=== PATIENT | female | born 1935 | race Caucasian/White ===

== ENCOUNTER 2019-12-02 09:48 | Inpatient (IN) | payer OTHER ==
[~2019-12-02] VITALS: Ht 152.4 cm; Wt 80.1 kg
[2019-12-02 09:53] VITALS: BP 143/75
[2019-12-02 11:13] LABS: ABSOLUTE NEUTROPHILS 7.1 thou/uL (1.4-8.2); BASOPHILS 0.3 % (0.0-2.0); EOSINOPHILS 0.4 % (0.0-3.0); HEMATOCRIT 33.6 % (37.0-47.0); HEMOGLOBIN 11.1 gm/dL (12.0-15.0); LYMPHOCYTES 13.6 % (24.0-44.0); MCH 32.4 pg (26.0-34.0); MCHC 33.2 g/dL (28.0-37.0); MCV 97.7 fL (80.0-100.0); MONOCYTES 7.6 % (1.0-8.0); PLATELET COUNT 348 thou/uL (150-400); POLYS 78.1 % (36.0-66.0); RBC 3.43 mil/uL (4.20-5.00); RDW 15.3 % (10.5-14.5); WBC 9.1 thou/uL (4.0-11.0)
[2019-12-02 11:23] LABS: ANION GAP 13 mmol/L (7-16); BUN 25 mg/dL (7-18); CALCIUM 8.8 mg/dL (8.5-10.1); CHLORIDE 105 mmol/L (98-107); CO2 22 mmol/L (21-32); CREATININE 0.7 mg/dL (0.6-1.0); GLUCOSE 64 mg/dL (74-106); POTASSIUM 4.1 mmol/L (3.5-5.1); SODIUM 140 mmol/L (136-145)
[2019-12-02 11:42] LABS: ALBUMIN 2.6 g/dL (3.4-5.0); MAGNESIUM 1.8 mg/dL (1.8-2.4); SGOT 42 U/L (15-37); SGPT 49 U/L (30-65); TOTAL BILIRUBIN 0.3 mg/dL (0.2-1.0); TOTAL PROTEIN 6.6 g/dL (6.4-8.2); TROPONIN-I <0.06 ng/mL (<0.06)
[2019-12-02 11:56] LABS: URINE BILIRUBIN NEGATIVE (Negative); URINE BLOOD NEGATIVE (Negative); URINE CLARITY CLEAR; URINE COLOR YELLOW; URINE GLUCOSE-RANDOM* NEGATIVE (Negative); URINE KETONES 1+ (Negative); URINE NITRITE-REFLEX NEGATIVE (Negative); URINE PROTEIN (DIPSTICK) NEGATIVE (Negative); URINE SPECIFIC GRAVITY 1.015 (1.005-1.035); URINE UROBILINOGEN 0.2 E.U./dl (0.2-1.0)
[2019-12-02 11:57] LABS: URINE LEUKOCYTES-REFLEX 1+ (Negative)
[2019-12-02 12:00] LABS: BACTERIA-REFLEX 1-9 Few /HPF (None Seen); CASTS None Seen /LPF (None Seen); CRYSTALS None Seen /LPF (None Seen); SQUAMOUS 0-3 Few /LPF (0-3); URINE RBC None Seen /HPF (0-2); URINE WBC-REFLEX 6-15 Few /HPF (0-5)
[2019-12-02 14:57] VITALS: BP 117/53
[2019-12-02 15:05] VITALS: BP 133/58
--- NOTE | 2019-12-02 15:36 | EKG ---
[facility] [place] [address] ELECTROCARDIOGRAM REPORT Name: LETHA CRUZ Room #: 434-P ADM IN M.R.#: [id number] Admission: 12/02/19 Attend Phys: Dorian Humphreys MD Discharge: Date of : 31 Report #: [id number] THIS REPORT FOR: cc: Paulie Milton MD, Thomas P. MD Santiago, Patrick MD [facility] ~ THIS REPORT FOR: //name// [facility] ED Test Date: 2019-12-02 Test Time: 11:11:34 Pat Name: LETHA CRUZ Department: Room: 434 Gender: F Top Screw: ANISHA : 1935 Requested By: Claude Rowland Order Number: [id number] MD: Teo Root Measurements Intervals [place] Rate: 67 P: 26 SC: 183 QRS: -1 QRSD: 101 T: 25 QT: 441 QTc: 466 Interpretive Statements Sinus rhythm Inferior infarct, old No previous ECG available for comparison Electronically Signed On 12-02-2019 15:36:22 CDT by Teo Root [email or web address] <ELECTRONICALLY SIGNED> By: Teo Root MD, FACC 12/02/19 1536 1111 1111 Teo Root MD, [facility] /EPI
[2019-12-02] MEDS ORDERED: OMEPRAZOLE40 MG PO (15:39)
[2019-12-02] MEDS ORDERED: LOSARTAN-HCTZ1 EAC3 PO (15:39)
[2019-12-02] MEDS ORDERED: K-DUR 20 MEQ T20 MEQ PO (15:40)
[2019-12-02] MEDS ORDERED: LIPITOR 40 MG T40 M1 PO (15:40)
[2019-12-02] MEDS ORDERED: MIRTAZAPINE15 M2 PO (15:40)
[2019-12-02] MEDS ORDERED: AMLODIPINE BESY10 MG PO (15:41)
[2019-12-02] MEDS ORDERED: HYDRALAZINE 5050 MG PO (15:41)
[2019-12-02] MEDS ORDERED: DULOXETINE HCL30 MG PO (15:42)
--- NOTE | 2019-12-02 16:53 | NUR ---
PT CARE ASSUMED FROM ER AT 1515. A&Ox4. FORGETFUL. ADMISSION COMPLEETED. PT HAD A BS OF 55 WHEN ADMITTED IN ER. D10 WAS GIVEN RECHECKED AND NOW 103. PT CAN STANDUP AND PIVOT AT HOME BUT IS CURRENTLY TOO WEAK AND ON BEDREST/ CONTINENT WITH URINARY INCONTINENT EPISODES. O2 1L FOR COMFORT. MED REC COMPLEETE. PT RESTING COMFORTABLY IN BED. IV PATENT WITH NO REDNESS OR EDEMA, SALINE LOCKED. FALL PROTOCOL IN PLACE. CALL LIGHT IN REACH. WILL CONTINUE TO MONITOR.
[2019-12-02 18:17] VITALS: BP 150/79
--- NOTE | 2019-12-03 02:11 | NUR ---
pt care assumed with pt in bed sleeping.pt is alert and orient x4.pt used bedpan and also incontinent to bladder.pt meals is set up and assist.pt appear to ne in no acute distress or pain.will continue to monitor
[2019-12-03 03:28] VITALS: BP 137/59
[2019-12-03 06:30] LABS: ABSOLUTE NEUTROPHILS 4.3 thou/uL (1.4-8.2); BASOPHILS 0.6 % (0.0-2.0); EOSINOPHILS 0.9 % (0.0-3.0); HEMATOCRIT 33.6 % (37.0-47.0); LYMPHOCYTES 22.6 % (24.0-44.0); MCH 32.5 pg (26.0-34.0); MCHC 32.8 g/dL (28.0-37.0); MCV 99.1 fL (80.0-100.0); MONOCYTES 8.8 % (1.0-8.0); PLATELET COUNT 346 thou/uL (150-400); POLYS 67.1 % (36.0-66.0); RBC 3.39 mil/uL (4.20-5.00); RDW 15.5 % (10.5-14.5); WBC 6.4 thou/uL (4.0-11.0)
[2019-12-03 06:45] LABS: ANION GAP 11 mmol/L (7-16); BUN 23 mg/dL (7-18); CHLORIDE 103 mmol/L (98-107); CO2 24 mmol/L (21-32); CREATININE 1.2 mg/dL (0.6-1.0); GLUCOSE 54 mg/dL (74-106); MAGNESIUM 1.7 mg/dL (1.8-2.4); SODIUM 138 mmol/L (136-145)
[2019-12-03 08:00] VITALS: BP 105/48; BP 142/67
--- NOTE | 2019-12-03 09:29 | NUR ---
ASSESSMENT: CM REVIEWED CHART AND MET WITH PATIENT AT THE BEDSIDE. PT IS ADMITTED FROM HOME DUE TO UTI/DEHYDRATION. PT REPORTS LIVING IN A HOUSE WITH HER . PT REPORTS SHE HAS A CAREGIVER THAT HELPS ASSIST HER ON /// FOR 5 HOURS PER DAY. SHE REPORTS THAT SHE IS PRIVATELY PAID. PT STATES THAT SHE USES A WALKER FOR AMBULATION. PT STATES THE CAREGIVER ASSIST WITH ADLS AND SHE HAS A SHOWER CHAIR. PT DENIES HAVING OXYGEN AT HOME. PT REPORTS THAT SHE HAS BEEN TO A REHAB IN THE PAST BUT UNSURE WHERE. PT DOES NOT FEEL SHE HAS HAD HH IN THE PAST. PT/OT IS ORDERED TO SEE PATIENT. CM WILL CONTINUE TO FOLLOW TO ASSIST NEEDED.
--- NOTE | 2019-12-03 09:42 | NUR ---
ASSESSMENT: CM REVIEWED CHART AND MET WITH PATIENT AT THE BEDSIDE. PT IS ADMITTED FROM HOME DUE TO UTI/DEHYDRATION. PT REPORTS LIVING IN A HOUSE WITH HER . PT REPORTS SHE HAS A CAREGIVER THAT HELPS ASSIST HER ON /// FOR 5 HOURS PER DAY. SHE REPORTS THAT SHE IS PRIVATELY PAID. PT STATES THAT SHE USES A WALKER FOR AMBULATION. PT STATES THE CAREGIVER ASSIST WITH ADLS AND SHE HAS A SHOWER CHAIR. CM RECEIVED A CALL FROM [employer] WHO REPORTS THAT PATIENT IS CURRENTLY IN SERVICES WITH THEM. CM FAXED INITIAL CLINICAL TO [facility] AND THEY WILL FOLLOW. PT REPORTS SHE HAS BEEN TO A SNF BEFORE SHE THINKS BUT IS UNSURE WHERE. PT/OT IS TO SEE PATIENT. CM WILL CONTINUE TO FOLLOW TO ASSIST NEEDED.
[2019-12-03 13:44] LABS: ALBUMIN 2.6 g/dL (3.4-5.0); DIRECT BILIRUBIN < 0.1 mg/dL (<0.1-0.2); SGOT 49 U/L (15-37); SGPT 39 U/L (30-65); TOTAL BILIRUBIN 0.2 mg/dL (0.2-1.0)
--- NOTE | 2019-12-03 17:17 | NUR ---
PT ASSESSED AT START OF SHIFT. PT ALERT BUT FORGETFUL. PT'S ICT SECURITY SPECIALIST RELATED PT LOOKS MUCH BETTER TODAY. UP TO THE CHAIR W/ THERAPY STILL VERY WEAK. NO BM. EATING OK.
[2019-12-03 20:00] VITALS: BP 119/45
--- NOTE | 2019-12-04 00:06 | NUR ---
PT ALERT AND ORIENTED X 1. INCONT OF URINE AND USES BEDPAN WELL. LAC SL INTACT. PT C/O PAIN IN RIGHT FOOT. TYLENOL GIVEN ORDERED. PT NPO AFTER MIDNIGHT FOR ULTRASOUND OF ABDOMEN IN AM. BED ALARM ON FOR SAFETY. PT APPEARS TO BE SLEEPING ON HOURLY ROUNDS.
[2019-12-04 05:58] LABS: HEMOGLOBIN 9.9 gm/dL (12.0-15.0); MCH 32.5 pg (26.0-34.0); MCV 98.6 fL (80.0-100.0); RBC 3.04 mil/uL (4.20-5.00); RDW 15.4 % (10.5-14.5); WBC 5.2 thou/uL (4.0-11.0)
[2019-12-04 06:16] LABS: ALBUMIN 2.3 g/dL (3.4-5.0); CALCIUM 8.8 mg/dL (8.5-10.1); POTASSIUM 3.7 mmol/L (3.5-5.1); TOTAL BILIRUBIN 0.2 mg/dL (0.2-1.0); TOTAL PROTEIN 6.2 g/dL (6.4-8.2)
--- NOTE | 2019-12-04 09:12 | NUR ---
PATIENT BLOOD GLUCOSE AT 55 THIS AM; PAGED DR; CHIEF MEDICAL DIRECTOR IN ROOM. PUSHED D50 IV AT 0910.
[2019-12-04 11:13] VITALS: BP 101/44
--- NOTE | 2019-12-04 11:45 | NUR ---
RD consult received. Pt admitted with weakness, dehyration, UTI. Visit this am, pt answering some questions but appears fatigued. Caregiver, Shereen in room. States pt normally eats well, can feed herself, "peel an orange on her own". Weakened from UTI infection. Had low bg level of 56 this am, did not eat any breakfast. Caregiver plans to be here for majority of meals, but has requested pt to receive feed assist until gets stronger again. Pt gave food preferences for her lunch meal. Started on some D5 .45NS fluids. No significant wt changes. Physician has indicated protein calorie malnutrition: will defer as suspect decreased intake is temporary from UTI. Pt also wants to try Ensure. Low nutrition risk
--- NOTE | 2019-12-04 13:56 | NUR ---
CM FOLLOWED UP WITH LIAISON AT [facility] THIS DAY AND SHE INDICATED THAT THEY DON'T ANTICIPATED HAVING ANY BEDS UNITL SUNDAY. CM MET WITH PT AND HER CAREGIVER AT BEDSIDE AND INDICATED THAT. CM INDICATED THAT CM HAD ATTEMPTED PC TO PT'S SPOUSE AND GOT THE HOME VOICEMAIL. CAREGIVER PROVIDED DTR DELIA'S PHONE NUMBER . CM CALLED AND DTR WAS WITH PT'S SPOUSE. CM INDICATED THE ABOVE. HE INDICATED THAT REFERR[place] COU[place] BE SENT [place] [facility] [place]. CG MILA INDICATED THAT PT IS MORE SLEEPY THEN SHE HAS BEEN AND THAT SHE NEEDS ASSIST/ENCOURAGEMENT TO EAT. CM FOLLOWING FOR DC PLANNING.
[2019-12-04 15:29] VITALS: BP 128/57
--- NOTE | 2019-12-04 15:57 | NUR ---
ASSUMED PATEINT CARE AT SHIFT CHANGE. ASSESSMENT CHARTED. MEDICATIONS GIVEN PER APR; HELD HYDRALAZINE D/T LOW BP. ONSET OF ALTERED MENTAL STATUS OCCURED AROUND 12PM AND PROGRESSED. BLADDER WAS SCANNED AND FOUND TO CONTAIN 517CC'S OF URINE. CLEARY WAS INSERTED; UPON BLADDER RESCAN THERE WERE 98CC'S AND DRAINING INTO INDWELLING CLEARY BAG. FLUIDS INFUSING AT 100MLS/HR D/T LOW BLOOD GLUCOSE EARLIER TODAY;
--- NOTE | 2019-12-04 17:04 | NUR ---
FAXED REFERRAL TO [facility] RECEIVED CONFIRMATION AND SPOKE WITH KAILYN IN ADM SHE WILL REVIEW. DP T0 FOLLOW.
--- NOTE | 2019-12-04 19:55 | NUR ---
PATIENT WENT DOWN TO CT TODAY; RESULTS ARE NEGATIVE. PATIENT BECAME ALERT BUT STILL CONFUSED AFTER BLADDER WAS DRAINED. AT END OF SHIFT CLEARY BAG WAS FOUND EMPTY; BLADDER WAS RESCANNED AND SHOWED 112CC'S OF URINE. PENDING LAB AND DIAGNOSTIC RESULTS. MONITORING FOR FURTHER CHANGE OR DECLINE IN STATUS. FSBS HAVE BEEN STABLE AFTER GLUCOSE PUSH IV BY CLINICAL INSTRUCTOR AND FUTHER INTERVENTION BY THIS NURSE PER DOCTORS ORDERS.
--- NOTE | 2019-12-04 20:15 | NUR ---
I AGREE WITH NURSING ASSESSMENT AND NURSING NOTE DONE BY MORAIMA/SPICE MILLER.
[2019-12-04 20:27] VITALS: BP 151/80
[2019-12-05 04:36] VITALS: BP 143/72
[2019-12-05 06:24] LABS: ABSOLUTE NEUTROPHILS 3.7 thou/uL (1.4-8.2); BASOPHILS 0.5 % (0.0-2.0); HEMATOCRIT 31.4 % (37.0-47.0); HEMOGLOBIN 10.3 gm/dL (12.0-15.0); LYMPHOCYTES 28.5 % (24.0-44.0); MCH 32.5 pg (26.0-34.0); MCHC 32.8 g/dL (28.0-37.0); MCV 99.1 fL (80.0-100.0); MONOCYTES 10.1 % (1.0-8.0); PLATELET COUNT 339 thou/uL (150-400); POLYS 59.9 % (36.0-66.0); RBC 3.17 mil/uL (4.20-5.00); RDW 15.6 % (10.5-14.5); WBC 6.2 thou/uL (4.0-11.0)
[2019-12-05 06:40] LABS: ALBUMIN 2.3 g/dL (3.4-5.0); CALCIUM 8.6 mg/dL (8.5-10.1); CREATININE 0.7 mg/dL (0.6-1.0); MAGNESIUM 1.7 mg/dL (1.8-2.4); PHOSPHORUS 2.6 mg/dL (2.5-4.9); POTASSIUM 3.2 mmol/L (3.5-5.1); TOTAL BILIRUBIN 0.2 mg/dL (0.2-1.0); TOTAL PROTEIN 6.2 g/dL (6.4-8.2)
[2019-12-05 08:00] VITALS: BP 137/69
--- NOTE | 2019-12-05 08:16 | NUR ---
progress pt alert upset thinking her spouse assurred her he was fine and pt back to sleep urinary catheter replaced as the other one was leaking good output noted. continue poc.
[2019-12-05 11:36] VITALS: BP 125/57
[2019-12-05 15:40] VITALS: BP 108/49
--- NOTE | 2019-12-05 16:33 | NUR ---
Assumed pt care at 7am.Assessment completed.vss.Pt wanted something to eat and drink today.Dr Elam notified ,order noted.Pt tolerated med and diet.Portable eeg done later this shift.Pt o2 on at 2lnc.Repositioned pt in bed for comfort. Fall bundle in place.No verbal c/o.Will continue to monitor.
[2019-12-05 19:33] VITALS: BP 120/60
[2019-12-06 03:35] VITALS: BP 129/57
[2019-12-06 06:20] LABS: ANION GAP 9 mmol/L (7-16); BUN 16 mg/dL (7-18); CHLORIDE 103 mmol/L (98-107); CHOLESTEROL 166 mg/dL (<200); CO2 26 mmol/L (21-32); CREATININE 0.8 mg/dL (0.6-1.0); GLUCOSE 95 mg/dL (74-106); HDL CHOLESTEROL 51 mg/dL (>40); LDL CHOLESTEROL 99 mg/dL (<100); MAGNESIUM 1.7 mg/dL (1.8-2.4); PHOSPHORUS 3.2 mg/dL (2.5-4.9); POTASSIUM 3.8 mmol/L (3.5-5.1); SODIUM 138 mmol/L (136-145); TC:HDL 3.3 Ratio (Not establshd); TRIGLYCERIDE 80 mg/dL (<150); VLDL 16 mg/dL (<40)
[2019-12-06 06:31] LABS: SERUM ASSESSMENT Clear
[2019-12-06 08:14] VITALS: BP 125/51
[2019-12-06 09:07] LABS: BASOPHILS 0.3 % (0.0-2.0); EOSINOPHILS 1.6 % (0.0-3.0); HEMATOCRIT 29.1 % (37.0-47.0); HEMOGLOBIN 9.4 gm/dL (12.0-15.0); LYMPHOCYTES 26.3 % (24.0-44.0); MCHC 32.3 g/dL (28.0-37.0); PLATELET COUNT 307 thou/uL (150-400); POLYS 60.8 % (36.0-66.0); RBC 2.94 mil/uL (4.20-5.00); RDW 15.2 % (10.5-14.5); WBC 6.7 thou/uL (4.0-11.0)
[2019-12-06 14:00] VITALS: BP 146/72
[2019-12-06 16:17] VITALS: BP 127/54
[2019-12-06 19:14] VITALS: BP 126/57
--- NOTE | 2019-12-06 19:40 | NUR ---
Assumed pt care this am, Pt is alert x 2, very confused insisting she knows her daughter is down stairs and she will go home with her. Refused most of her meals, but had he supplement in the am, would drink fluids. FC in place drainnig light yellow urine. POC followed with no signs or verbalizations of distresss noted. Endorsed tot night nurse.
--- NOTE | 2019-12-07 05:54 | NUR ---
VSS-AFEBRILE. ALERT AND ORIENTED X 2-3. PERIODS OF CONFUSION. PLEASANT AND COOPERATIVE. NO C/O PAIN. TURNED AND OFFERED ORAL HYDRATION EVERY TWO HOURS FOR COMFORT. FALL PRECAUTIONS IN PLACE.
[2019-12-07 07:49] VITALS: BP 130/65
--- NOTE | 2019-12-07 15:24 | NUR ---
Assumed pt care at 7am.Assessment completed.vss.Pt transferd to chair with max assist for breakfast.Meds given as ordered with breakfast.Pt drank 100% ensure but 25% of breakfast.Dr Elam and Vega here,order noted.Piv went bad and replaced by iv team.Pt c/o neck pain.Heating pad will be applied when received from cs later today.Pt refused lunch,stated that she's too full. Chair alarm in use for safety.Will continue to monitor.
[2019-12-07 16:00] VITALS: BP 117/43
[2019-12-07 21:01] VITALS: BP 141/68
[2019-12-08 08:05] VITALS: BP 140/54
[2019-12-08 08:17] VITALS: BP 140/54
--- NOTE | 2019-12-08 08:18 | NUR ---
progress pt alert to self answers questions when spoken to not all answers are correct, pt slept most of shift ivf's infusing as ordered iv to lf without redness swelling or drainage. taking sips of water when offered attempted to have a bm but had a scant amount of bloddy vaginal drainage cleansed and none further noted.
[2019-12-08 11:51] LABS: HEMATOCRIT 26.4 % (37.0-47.0); HEMOGLOBIN 8.7 gm/dL (12.0-15.0); MCH 32.3 pg (26.0-34.0); MCHC 32.9 g/dL (28.0-37.0); MCV 98.3 fL (80.0-100.0); PLATELET COUNT 301 thou/uL (150-400); RBC 2.68 mil/uL (4.20-5.00); RDW 14.9 % (10.5-14.5); WBC 7.6 thou/uL (4.0-11.0)
[2019-12-08 12:15] LABS: ALBUMIN 1.8 g/dL (3.4-5.0); CALCIUM 8.4 mg/dL (8.5-10.1); CREATININE 0.6 mg/dL (0.6-1.0); TOTAL BILIRUBIN 0.2 mg/dL (0.2-1.0); TOTAL PROTEIN 5.8 g/dL (6.4-8.2)
[2019-12-08 12:59] LABS: ABSOLUTE NEUTROPHILS 5.7 thou/uL (1.4-8.2); PLATELET ESTIMATE NORMAL
--- NOTE | 2019-12-08 16:20 | NUR ---
CM FAXED CLINICAL UPDATED TO NAS AT [facility] INDICATING POSSIBLE DC IN 24-48 HRS. PT'S COVID IS PENDING. CM TO FOLLOW INDICATED WITH DC PLANNING.
--- NOTE | 2019-12-08 18:16 | NUR ---
ASSUMED CARE OF PATIENT THIS AM. ASSESSMENT CHARTED. MEDS GIVEN PER MAR. VSS; PATIENT IS VERY DROWSY TODAY. PATIENT DOES ANSWER TO QUESTIONS HOWEVER. PATIENT HAS VERY POOR APPETITE. CAREGIVER AT BEDSIDE ENCOURAGED HER TO EAT AND SHE ATE 20% OF HER MEALS. PATIENT CONTINUES TO BE REPOSITIONED EVERY 2 HRS BUT REFUSES AT TIMES. X-RAY OF CSPINE THIS AM, AWAITING RESULTS. CLEARY INTACT W YELLOW URINE. PATIENT DENIES ANY OTHER NEEDS AT THIS TIME. WILL CONTINUE TO MONITOR
--- NOTE | 2019-12-08 18:22 | NUR ---
I AGREE WITH NURSING ASSESSMENT AND NURSING NOTE DONE BY MORAIMA/FIELD TECHNICIAN.
[2019-12-08 19:50] VITALS: BP 140/72
--- NOTE | 2019-12-09 07:59 | NUR ---
Assumed pt care at 1900. Pt A/O to person,place and situation on assessment. VSS. Took HS meds w/o any problems,BS was 76 and pt declined taking a snack but consumed 240cc applejuice. Covid test done w/o any problems. Yeboah patent to DD with yellow urine. Pt repositioned as allows,c/o neck pain w/movement. Fall precautions in place. IVF infusing via LFA w/o problems.
[2019-12-09 08:44] VITALS: BP 110/57
[2019-12-09 14:00] VITALS: BP 125/60
--- NOTE | 2019-12-09 14:00 | NUR ---
[facility] CAN ACCEPT PT FOR ADMISSION TOMORROW SATURDAY 12/09 IF MEDICALLY STABLE. CM TO FOLLOW INDICATED WITH DC PLANNING.
--- NOTE | 2019-12-09 20:12 | NUR ---
Assumed pt care this am, care give at the bedside, pt is more alert today. Pt is a feeder, small frequent feedings done through out the day. Bed bath and complete bed change done. FC in place draining light yellow urine. POC followed, neck pain is due to being on one side, pt repositioned. POC followed michelle no signs or verbalizations of distress noted, Endorsed to the night nurse, pt would refuse q2 turns at times.
[2019-12-09 20:21] VITALS: BP 133/59
[2019-12-10 07:29] VITALS: BP 154/83
[2019-12-10 14:45] VITALS: BP 108/63
--- NOTE | 2019-12-10 15:17 | NUR ---
EDILMA SPOKE WITH [facility] AT [facility] THIS AM AND FAXED UPDATED CLINICAL FOR THEM TO SUBMIT FOR AUTH. KAREEM INDICATED THAT THEY AREN'T TAKING NEW ADMITS TODAY. HOSPITALIST INDICATED THAT SHE ANTICPATED DC TOMORROW SHE WOULD LIKE FOR PT TO INCREASE PO INTAKE A BIT MORE. HOPE FOR PT TO DC TOMORROW TO [facility].
--- NOTE | 2019-12-10 19:50 | NUR ---
PT A&OX2-3, VSS, DENIES PAIN. PAIN HAS CLEARY INTACT. NEW IV PLACED LEFT FOREARM. PATIENT UP TO RECLINER AND WORKED WITH PT. PT IS EATING 50% OF MEALS. DOCTOR HAS PATIENT ON CALORIE COUNT. PATIENT IS BEING SEEN BY RESPIRATORY AND BEING ASSISTED WITH INCENTIVE SPIROMETER. PATIENT REPOSITIONED. NO SIGNS OF DISTRESS. WILL CONTINUE TO MONITOR.
[2019-12-11 05:20] VITALS: BP 138/60
[2019-12-11 07:14] VITALS: BP 130/43
--- NOTE | 2019-12-11 10:06 | NUR ---
CARE TEAM INDICATED THAT PT IS MORE CONFUSED TODAY AND HER PO INTAKE IS NOT WHERE SHE WOULD LIKE IT. NEURO TO BE ASKED TO SEE AGAIN FOR POSSIBLE REPEAT MRI AND REPEAT LABS ORDERED. CM NOTIFIED [facility]. CM TO FOLLOW INDICATED WITH DC PLANNING.
[2019-12-11 10:22] LABS: HEMATOCRIT 29.4 % (37.0-47.0); HEMOGLOBIN 9.6 gm/dL (12.0-15.0); MCH 32.2 pg (26.0-34.0); MCHC 32.6 g/dL (28.0-37.0); MCV 98.9 fL (80.0-100.0); RBC 2.98 mil/uL (4.20-5.00)
[2019-12-11 10:30] LABS: CALCIUM 8.7 mg/dL (8.5-10.1); CREATININE 0.6 mg/dL (0.6-1.0); POTASSIUM 3.8 mmol/L (3.5-5.1)
--- NOTE | 2019-12-11 11:24 | NUR ---
Pt eating very little but will drink Ensure supplements. Met 35% oneil and 64% protein needs for day 1 calorie count. Note trial of puree diet due to pts weakness. Plan: 1.continue calorie count 2.will increase ensure enlive to all meals 3.recommend ST to assess safety of swallow 4.recommend start on vitamin D due to deficiency noted
[2019-12-11 15:55] VITALS: BP 126/63
--- NOTE | 2019-12-11 20:16 | NUR ---
Assumed pt care this am, appetite is poor and mentioned she does not want too eat coz its too hard and it takes too much time. international relations professor at the bed side. Bed bath given,FC in place drainnig yellow urine.Q2 turn refused but would allow on occasion. MRI done, pain is managed with repositioning. POC followed, endorsed to the night nurse.
[2019-12-12 07:51] VITALS: BP 107/53
--- NOTE | 2019-12-12 10:48 | NUR ---
Dr Shipman gave verbal order to start PPN. Recommend discontinue maintenance fluids and start clinimix at 100ml/hr. Order needs to be placed in computer please. Pt also needs vitamin D replacement.
[2019-12-12 14:02] VITALS: BP 143/64
--- NOTE | 2019-12-12 15:35 | NUR ---
CARE TEAM INDICATED PT WILL LIKELY NOT BE MEDICALLY STABLE TO DISCHARGE OVER THE WEEKEND. PT WAS JUST STARTED ON PPN. CM CHECKED WITH [facility] AND THEY DON'T DO PPN THERE. THEIR AUTH IS ONLY GOOD UNTIL TOMORROW. ANTICIPATE [facility]EFULL DISCAHRGE THE BEGINING OF NEXT WEEK. CM TO FOLLOW INDICATED WITH DC PLANNING.
[2019-12-12 16:13] LABS: ALBUMIN 1.8 g/dL (3.4-5.0); CALCIUM 8.1 mg/dL (8.5-10.1); CREATININE 0.6 mg/dL (0.6-1.0); PHOSPHORUS 3.7 mg/dL (2.5-4.9); POTASSIUM 4.7 mmol/L (3.5-5.1); TOTAL BILIRUBIN 0.1 mg/dL (0.2-1.0); TOTAL PROTEIN 4.9 g/dL (6.4-8.2)
--- NOTE | 2019-12-12 19:57 | NUR ---
Assumed pt care this am, appretite is very poor not wanting to eat. Medication given with pudding. Pt is very angry and resistant to POC. Both arms are +3 edema on both arms, informed MD. Venous doppler ordered not significant findings. IV team restarted IV on the left AC, PPN started. POC followed, endorsed darline night nurse. Small frequent feedings and hdyrations tried through out the shift. Q2 turns refused and pt verbalizae dshe did not want to be touched and to be left alone.
[2019-12-13 05:36] VITALS: BP 168/81
[2019-12-13 06:17] LABS: ALBUMIN 1.8 g/dL (3.4-5.0); CALCIUM 9.1 mg/dL (8.5-10.1); CREATININE 0.6 mg/dL (0.6-1.0); MAGNESIUM 2.3 mg/dL (1.8-2.4); PHOSPHORUS 4.1 mg/dL (2.5-4.9); POTASSIUM 4.3 mmol/L (3.5-5.1); TOTAL BILIRUBIN 0.2 mg/dL (0.2-1.0); TOTAL PROTEIN 6.2 g/dL (6.4-8.2)
[2019-12-13 07:52] VITALS: BP 143/56
--- NOTE | 2019-12-13 12:34 | NUR ---
PT CARE ASSUMED AT 0700. A&Ox4, FORGETFUL. PT HAS GENERALIZED EDEMA+3. SKIN IS FLAKY ON THE ENTIRE BODY. PT VERY SLEPPY TODAY. ON RA. R. AC PATENT WITH NO REDNESS OR EDEMA ONLY FOR TPN INFUSION. L.HAND INFILTRATED AND REMOVED. PT HAS DROP FOOT L FOOT. WHEN UP TO THE CHAIR PT IS A 2 MAX ASSIST WITH STAND AND PIVOT. HOLD HYDRALIZINE IF SYSTOLIC BELOW 130. PT WILL WEAR 2L FOR COMFORT PER PT REQUEST. FALL PROTOCOL IN PLACE. CALL LIGHTI N REACH. BM TODAY. PT IS A FEEDER AND TOTAL CARE.
[2019-12-13 14:49] VITALS: BP 145/55
[2019-12-14 05:37] LABS: HEMATOCRIT 24.6 % (37.0-47.0); HEMOGLOBIN 8.2 gm/dL (12.0-15.0); MCH 32.8 pg (26.0-34.0); MCHC 33.2 g/dL (28.0-37.0); MCV 98.6 fL (80.0-100.0); PLATELET COUNT 523 thou/uL (150-400); RDW 14.6 % (10.5-14.5); WBC 8.3 thou/uL (4.0-11.0)
[2019-12-14 06:00] LABS: ALBUMIN 1.7 g/dL (3.4-5.0); DIRECT BILIRUBIN < 0.1 mg/dL (<0.1-0.2); SGOT 21 U/L (15-37); SGPT 25 U/L (30-65); TOTAL BILIRUBIN 0.2 mg/dL (0.2-1.0); TOTAL PROTEIN 4.6 g/dL (6.4-8.2)
[2019-12-14 06:05] LABS: CALCIUM 8.5 mg/dL (8.5-10.1); CREATININE 0.7 mg/dL (0.6-1.0); MAGNESIUM 2.2 mg/dL (1.8-2.4); PHOSPHORUS 4.3 mg/dL (2.5-4.9); POTASSIUM 4.7 mmol/L (3.5-5.1)
[2019-12-14 06:41] LABS: ABSOLUTE NEUTROPHILS 4.9 thou/uL (1.4-8.2); PLATELET ESTIMATE NORMAL
--- NOTE | 2019-12-14 07:47 | NUR ---
PROGRESS PT A/O X4 UP WITH MAX ASSIST , BED BATH GIVEN AND SKIN MOISTURIZED TAKING PAIN MEDICATION SPARINGLY IV ANTIBIOTICS AND PPN CONTINUE PT ON PUREED DIET NEEDS ASSISTANCE WITH MEAL SET UP AND ENCOURAGEMENT TO EAT MORE. CLEARY INTACT DRAINING LARGE AMOUNT OF CLEAR YELLOW URINE. REPOSITIONED Q2 HOURS GENERALIZED EDMA NOTED BUT HAS GONE DOWN SLIGHTLY SINCE PREVIOUS SHIFT SKIN IS NOT SHINY AND TIGHT TODAY. CONTINUE POC.
[2019-12-14 07:59] VITALS: BP 127/58
--- NOTE | 2019-12-14 13:43 | NUR ---
Assumed pt care this am, PPN currently running. Very poor intake of food an fluids, meds given with pudding. Pt is very angry and does not want POC to be followed, Q2 turns refused and does not want to be moved and would always state she wants to "things to be done my time not yours". Pt had a large bm and was refusing to be changed, explained this needed to be done. BM and UA sent to the lad. +3 edema note on upper ext significant on the left arm. 2L O2 via NC.
[2019-12-14 13:53] LABS: URINE BILIRUBIN NEGATIVE (Negative); URINE BLOOD NEGATIVE (Negative); URINE CLARITY CLEAR; URINE COLOR YELLOW; URINE GLUCOSE-RANDOM* NEGATIVE (Negative); URINE KETONES NEGATIVE (Negative); URINE LEUKOCYTES-REFLEX TRACE (Negative); URINE PROTEIN (DIPSTICK) NEGATIVE (Negative); URINE SPECIFIC GRAVITY 1.015 (1.005-1.035); URINE UROBILINOGEN 0.2 E.U./dl (0.2-1.0)
[2019-12-14 13:54] LABS: URINE NITRITE-REFLEX POSITIVE (Negative)
[2019-12-14 13:59] LABS: SQUAMOUS 0-3 Few /LPF (0-3)
[2019-12-14 14:00] LABS: CASTS None Seen /LPF (None Seen); MUCUS >6 Heavy strn/LPF (None Seen); URINE RBC 0-2 Rare /HPF (0-2); URINE WBC-REFLEX 6-15 Few /HPF (0-5)
[2019-12-14 14:01] LABS: BACTERIA-REFLEX None Seen /HPF (None Seen); CRYSTALS None Seen /LPF (None Seen)
[2019-12-14 15:59] LABS: HEMATOCRIT 24.2 % (37.0-47.0); HEMOGLOBIN 8.4 gm/dL (12.0-15.0)
[2019-12-14 20:00] VITALS: BP 119/53
[2019-12-15 05:43] LABS: HEMATOCRIT 25.4 % (37.0-47.0); HEMOGLOBIN 8.3 gm/dL (12.0-15.0); MCH 31.9 pg (26.0-34.0); MCHC 32.7 g/dL (28.0-37.0); MCV 97.4 fL (80.0-100.0); PLATELET COUNT 573 thou/uL (150-400); RBC 2.61 mil/uL (4.20-5.00); RDW 14.5 % (10.5-14.5); WBC 7.9 thou/uL (4.0-11.0)
[2019-12-15 06:04] LABS: CALCIUM 8.7 mg/dL (8.5-10.1); CREATININE 0.6 mg/dL (0.6-1.0); MAGNESIUM 2.3 mg/dL (1.8-2.4); PHOSPHORUS 5.1 mg/dL (2.5-4.9); POTASSIUM 4.5 mmol/L (3.5-5.1)
--- NOTE | 2019-12-15 07:20 | NUR ---
PROGRESS PT ALERT AND RESPONSIVE TO VERBAL AND TACTILE STIMULATION BUT SLEEPING MOST OF SHIFT. 3 PLUS EDEMA NOTED TO ARMS AND LEGS CONCERNED ABOUT RINGS BEING TOO TIGHT ON FINGERS SHE DENIED PAIN. IV ANTIBIOTICS ADMINISTERED ORDERED, LUNGS DIMINISHED LARGE AMOUNT OF URINE FROM CLEARY PASSING GAS BUT STILL HAS POOR APPETITE PT STATED SHE HATES THE PUREED DIET AND WILL OT EAT IT. ENCOURAGED SUPPLEMENTS.
[2019-12-15 07:22] LABS: ANISOCYTOSIS SLIGHT
[2019-12-15 07:23] LABS: ABSOLUTE NEUTROPHILS 4.7 thou/uL (1.4-8.2)
[2019-12-15 08:00] VITALS: BP 136/53
--- NOTE | 2019-12-15 14:19 | NUR ---
PER CHART AND CARE TEAM PT WAS MADE DNR YESTERDAY. PT CONTINUES ON PPN. HOSPITLIST ASKED THAT DR. GARDNER FOLLOW UP WITH PT AND HER FAMILY RELATED TO HER PROGRESS AND GOALS OF CARE. PT AND FAMILY HAD INDICATED THAT THEY HAD WANTED PT TO GO TO [facility] FOR REB SERVICES UPON DC. PT ISN'T CONSISTANTLY PARTICIPATING IN THERAPY OF THIS NOTE. THEY WILL NEED NEW AUTH. CM TO FOLLOW INDICATED WITH DC PLANNING.
--- NOTE | 2019-12-15 19:50 | NUR ---
Assumed pt care this amn, complete bath given on the bed and oral care given. PPN still running on the left chest. +2 edema noted on the upper extremities. allowed turns every 4, FC in place drainig light yellow urine. Small frequent feedings done, at the bedside. Pt was able to work with PT (sta at the bed side) max assists of 2. Pt states she does not want to eat coz she wants to loose weight. POC followed with no signs of distress noted. Endorsed to the night nurse.
[2019-12-15 20:21] VITALS: BP 144/52
[2019-12-16 05:25] VITALS: BP 121/64
[2019-12-16 05:58] LABS: CALCIUM 8.8 mg/dL (8.5-10.1); CREATININE 0.6 mg/dL (0.6-1.0); MAGNESIUM 2.3 mg/dL (1.8-2.4); PHOSPHORUS 4.3 mg/dL (2.5-4.9); POTASSIUM 4.2 mmol/L (3.5-5.1)
--- NOTE | 2019-12-16 06:35 | NUR ---
ASSUMED PT CARE AROUND 1930. VSS. NO S/S ACUTE DISTRESS NOTED OR REPORTED AT THIS TIME WILL CONT TO MONITOR FOR ANY CHANGES IN CONDITION
[2019-12-16 07:17] VITALS: BP 144/57
--- NOTE | 2019-12-16 11:42 | NUR ---
patient has been resting comfortably in bed. providing q2h turns and encouraging mobility and independence. Helped patient feed breakfast, ate about 20% of meal. Held and drank from ensure independantly but unwilling to try many items on her tray. Patient pulled out right wrist IV due to aggitation. Plan to dc to rehab facility soon, pending dc of PPN. no immediate concerns.
--- NOTE | 2019-12-16 11:54 | NUR ---
I HAVE REVIEWED THE STUDENT DOCUMENTATION.
--- NOTE | 2019-12-16 12:29 | NUR ---
DR. URENA AND DR. GARDNER BOTH VISITED WITH PT AND FAMILY YESTERDAY AND IT APPEARS THAT THEY INDICATED THAT THEY ARE STILL INTERESTED IN PT GOING FOR SKILLED REHAB STAY UPON DC. PHYSICAIN INDICATED THAT THE PPN WAS TO BE STOPPED. CM SENT CLINICAL UPDATE TO [facility] AND ASKED THAT THEY RESUBMIT FOR INSURANCE AUTH. CM FOLLOWING REGARDING DC PLANNING.
[2019-12-16 14:54] VITALS: BP 109/50
--- NOTE | 2019-12-16 19:40 | NUR ---
Assumed pt care this am, right arm is +3 edema. Lethargic and refused all meals. Would take some drinks when offered. INformed md of the edema, was advised to stop PPN, blood sugar dropped in the pm. Called IV team to get a better IV line. PPN restarted. at the bedside, spoke to the MD and his daughters regarding the condition of the pt. decided that he would like a peg tube placed, MD informed and consult called. Q2 turns done on the pt. POC followed, endorsed to the night nurse.No skin issues noted.
[2019-12-16 19:41] VITALS: BP 131/70
--- NOTE | 2019-12-17 03:44 | NUR ---
ASSUMED PT CARE AROUND 1930. SLEPT MOST OF THE TIME. BECOMES VERY ANGRY WOKEN UP FOR MEDS AND CARE. NO S/S ACUTE DISTRESS NOTED OR REPORTED AT THIS TIME. WILL CONT TO MONITOR FOR ANY CHANGES IN CONDITION.
[2019-12-17 07:35] VITALS: BP 129/62
--- NOTE | 2019-12-17 08:25 | NUR ---
Noted GI consulted for PEG. Recommend continue PPN until PEG, then start jevity 1.5 at 30ml/hr and progress to goal 50ml/hr with 240ml water flush every 6hr
--- NOTE | 2019-12-17 09:27 | NUR ---
PHYSICIAN SPOKE WITH PT, SPOUSE, AND DTR AND ALL ARE AGREEABLE WITH PTOCEEDING WITH PEG TUBE PLACEMENT. THERE ISN'T ANY INDICATION IN CHART TO WHEN IT IS ANTIIPATED PT WILL HAVE THIS DONE. [facility] HAS AUTH AGIAN FOR PT TO ADMIT THERE. CM NOTIFIED [facility] THEIR LIAISON. CM TO FOLLOW INDICATED WITH DC PLANNING.
--- NOTE | 2019-12-17 12:03 | EEG ---
[facility] [address] ELECTROENCEPHALOGRAM Name: LETHA CRUZ Room #: 462-P ADM IN M.R.#: [id number] Admission: 12/02/19 Attend Phys: Dorian Humphreys MD Discharge: Date of : 31 Report #: [id number] THIS REPORT FOR: //name// CC: Dorian Milton DATE OF SERVICE: 12/05/2019 This patient's EEG was done by placing the electrode by standard 10-20 system of electrode placement. Both referential and sequential montages were used for recording. Background activity in this patient's EEG does go up to about 8-9 Hz, but a lot of time it is slower. Photic stimulation is unremarkable. The patient became drowsy that is associated with bilateral slowing and vertex sharp waves. Throughout the record, no active epileptiform activity was noticed. IMPRESSION: This patient's EEG is intermixed with theta range slowing on both sides. That is a nonspecific abnormality, which can occur with encephalopathy, effect of psychotropic medication, dementia, etc. Clinical correlation is recommended. <ELECTRONICALLY SIGNED> By: Ankit Mayorga MD 12/17/19 1203 1240 1248 Ankit Mayorga MD /nt
--- NOTE | 2019-12-17 12:04 | HC ---
[facility] [place] [address] CONSULTATION Name: LETHA CRUZ Room #: 462-P ADM IN M.R.#: [id number] Admission: 12/02/19 Attend Phys: Dorian Humphreys MD Discharge: Date of : 31 Report #: [id number] THIS REPORT FOR: cc: Paulie Milton MD, Thomas P. MD Khosla, Parveen K. MD ~ CC: Dorian Milton DATE OF SERVICE: 12/04/2019 HISTORY OF PRESENT ILLNESS: This 84-year-old female patient was evaluated by me for altered mental status. The patient is unable to provide any history at all. I talked to the nurse who is looking after her and I reviewed the records in the computer. It looks like from the record, as well as the patient's that the patient had a prior stroke. According to him, the stroke affected the left side of the body. She requires 24-hour supervision. She has a bedside commode. A caregiver comes during the day, but at night the patient's helped her. She was diagnosed with urinary tract infection and her oral intake has been poor in the last few days. She started having altered mental status. Prior to that, her memory was not very good, but according to the , it was much better than before. What they mean by that is not clear. REVIEW OF SYSTEMS: Positive for stroke. She was in [facility] when the stroke happened. says that the patient is not a diabetic, but her blood sugar is fluctuating here and her blood glucose is only 55 at one time. A 14-point review of system was carried out from the , as well as from the records. She has a urinary tract infection. Baseline [employer]IST function is pretty significantly compromised. says she does not get much infection in the urine, so he does not know how much altered she had become. She has developed some edema. Apparently, she has generalized weakness, but she has more weakness on the left side as compared to the right side. That is because of her prior stroke. This was a relevant 14-point review of system, which I could carry out from the as well as from the records. PAST MEDICAL HISTORY: Positive for stroke, but further history is not available in that regard. FAMILY HISTORY: Unremarkable. SOCIAL HISTORY: She does not drink or smoke. PHYSICAL EXAMINATION: The patient's examination is pretty limited. On my examination, this patient did not do anything. I cannot tell whether the weakness is one side or another because the patient does not respond at all. There does not appear to be any meningeal sign in this patient. Her blood [address] [address] CONSULTATION Name: LETHA CRUZ Room #: 462-P [facility] IN M.R.#: [id number] Admission: 12/02/19 Attend Phys: Dorian Humphreys MD Discharge: Date of : 33 Report #: [id number] pressure is running about 151/80, respirations 17, pulse is 81, and temperature is 97.9. She does not appear to have any edema. She does not have any response. That is all the examination I could carry out, but I reviewed other consultant rn's examination. The history I get from the is somewhat different. IMPRESSION: This patient most likely has encephalopathy. Her baseline function is poor. She required 24-hour supervision. She also has a bedside commode. It does not look like she has any central nervous system infection, especially because her white count is normal. She did become hypoglycemic and that may be contributing to her encephalopathy. Her TSH, vitamin B12 is normal and CT shows pretty consistent cerebral atrophy. I will get an EEG done in this patient. I will watch her tonight. We will ask Dr. Castro to follow up tomorrow on this patient. I do not think there is a strong indication to do the spinal tap at this stage in this patient, but depending upon how the patient does and how aggressive the family want to be, we may consider that later on. I do not see any meningeal sign at the moment. I spent more than 50 minutes of time taking care of this patient today and majority was spent counseling, coordinating and care in this patient and reviewing the patient's extensive data and imaging study. Imaging study does demonstrate pretty significant white matter changes to me. Thank you very much for this referral. Dr. Castro will follow up this patient with you from tomorrow. <ELECTRONICALLY SIGNED> By: Ankit Mayorga MD 12/17/19 1204 [id number] Ankit Mayorga MD /nt
[2019-12-17 13:28] VITALS: BP 92/34
--- NOTE | 2019-12-17 13:45 | NUR ---
Note possible PEG consideration.
[2019-12-17 15:15] VITALS: BP 100/48
--- NOTE | 2019-12-17 16:13 | NUR ---
Assumed pt care at 7am.Pt in bed sleeping but arousable.Assessment completed. vss.Pt took am meds with apple sauce but has poor appetite.Dr Shipman here.No new order noted.At 1320,pt bp was 97/37 on lt arm and 92/[address] Shipman notified,order noted.Pt her later this afternoon,Rosalinda [facility] from [facility] and she came and discussed peg tube placement with pt . He said will sign the consent so pegtube can be place in am.Pt in bed sleeping at present.Will continue to monitor.
[2019-12-17 20:00] VITALS: BP 127/49
--- NOTE | 2019-12-18 07:43 | NUR ---
PROGRESS PT A/O X4 LOOKS AND STATES SHE FEELS BETTER. PPN INFUSING ORDERED PEG TUBE TO BE PLACED TODAY. DRESSING TO RIGHT HEEL C/D/I CONTINUE POC.
[2019-12-18 08:00] VITALS: BP 132/57
--- NOTE | 2019-12-18 09:44 | NUR ---
PT IS TO HAVE A PEG TUBE PLACE TODAY. CM TO FOLLOW INDICATED WITH DC PLANNING.
--- NOTE | 2019-12-18 14:39 | NUR ---
Pt in bed resting early this am and very anxious about going for peg tube placement today.Assessment completed.vss.Oral care done and repositioned pt for comfort.At 12noon ,pt left for gi lab for peg tube placement and returned to floor in stable condition at 1400.Will continue to monitor.
[2019-12-18 15:02] VITALS: BP 153/80
--- NOTE | 2019-12-18 16:23 | NUR ---
FAXED CLINICAL UPDATE TO [facility] RECEIVED CONFIRMATION AND SPOKE WITH KAREEM IN ADM. DP TO FOLLOW.
--- NOTE | 2019-12-18 17:31 | P ---
[facility] [place] [address] PROCEDURE REPORT Name: LETHA CRUZ Room #: 462-P ADM IN M.R.#: [id number] Admission: 12/02/19 Attend Phys: Dorian Humphreys MD Discharge: Date of : 33 Report #: [id number] THIS REPORT FOR: cc: Paulie Milton MD, Thomas P. MD McElhinney, Christian C. MD ~ CC: Dorian Milton Ramonita DATE OF SERVICE: 12/18/2019 PROCEDURE PERFORMED: Upper endoscopy with PEG tube placement. HISTORY OF PRESENT ILLNESS: The patient is an 84-year-old female with generalized weakness, fatigue, malnutrition, has poor appetite, continued weight loss. She has been refusing meals. She does have some mental status changes. Plan is for PEG tube placement for nutritional support. DESCRIPTION OF PROCEDURE: The risks and benefits of the procedure were explained to the patient's , those risks including but not limited to bleeding, perforation and the risk of sedation as well as potential risk for infection. He understood these risks and gave informed consent. The patient is currently on IV Cipro at this time. The procedure was performed in the GI lab. Propofol was given per anesthesia. Next, using a standard Olympus upper endoscope, the scope was placed in the patient's mouth and advanced under direct vision through the esophagus, stomach and into the second portion of the duodenum. The esophagus was normal throughout. The GE junction was normal. Overall, the gastric mucosa was normal. The pylorus was normal and patent. The duodenal bulb, first and second portion were all normal. The scope was brought back up into the patient's stomach and the stomach was fully insufflated with air. Good transillumination was noted through the anterior abdominal wall. This area was then marked and the skin was prepped with chlorhexidine solution. Sterile drape was then put in place. Next, Xylocaine was used as a local anesthetic. Next, using a seeker needle, the needle was advanced through the anterior abdominal wall into the gastric lumen under direct vision without difficulty. The needle was then removed. A small 1 cm transverse incision was then made through the skin. Next, a catheter needle was advanced into the midportion of the incision, again into the gastric lumen under direct vision. The needle was removed. The catheter remained in place. Next, a blue guidewire was advanced through the catheter. This was grasped with a snare through the endoscope and then brought back up through the patient's mouth. Next, a 20-[place] PEG tube was then secured to the blue guidewire and using a pull technique, was put into position without difficulty. The scope was reintroduced into the patient's stomach, the PEG tube bumper was noted to be in good position in the mid body. The scope was then withdrawn. The PEG tube was then secured [address] [address] PROCEDURE REPORT Name: LETHA CRUZ Room #: 462-P [facility] IN M.R.#: [id number] Admission: 12/02/19 Attend Phys: Dorian Humphreys MD Discharge: Date of : 33 Report #: [id number] to the anterior abdominal wall. The procedure was terminated. The patient tolerated the procedure well. IMPRESSION: 1. Status post PEG tube placement as described above. 2. Otherwise, normal upper endoscopy. RECOMMENDATIONS: We will start using PEG tube tomorrow. Thank you for allowing me to participate in her care. <ELECTRONICALLY SIGNED> By: Ronald Cantrell MD 12/18/19 1731 [id number] [id number] Ronald Cantrell MD /nt
[2019-12-18 19:20] VITALS: BP 140/65
--- NOTE | 2019-12-18 19:27 | NUR ---
CONSULTED TO PLACE A PIV, ARMS ARE VERY SWOLLEN AND HAS HAD DAILY PIV INFILTRATIONS. A PIV PLACED FOR ABX AND A MIDLINE WAS PLACED FOR PPN. DISCUSSED WITH THE PATIENT AND SHE VERBALIZED UNDERSTANDING. A #4F MIDLINE WAS TRIMMED TO 10CM AND [facility] WITHOUT DIFFICULTY. SECURED AND RELEASED FOR USE
[2019-12-19 00:33] VITALS: BP 157/82
[2019-12-19 00:36] VITALS: BP 140/63
--- NOTE | 2019-12-19 04:37 | NUR ---
patient has been a dressing on the abd, c/d/i. patient has been asleep all night. fall precaution in place. patient turned q [address]. patient has bue edema, elevated bue. cath care done this shift.patient in bed sleep at this time breathing regular and unlaboured.
[2019-12-19 08:24] VITALS: BP 144/75
--- NOTE | 2019-12-19 14:40 | NUR ---
Pt in bed more active and asking for food and fluid to drink today.Ice water and o.J given.Assessment completed.vss.Dr Shipman and Gi group here,order noted.Tube feeding started around 1230 with water flushes.PPN will bed dc if pt tolerated feeding.Pt was up in chair for over one hour today before returning to bed.No verbal c/o. Will continue to monitor.
--- NOTE | 2019-12-19 15:35 | NUR ---
PT'S TUBE FEEDING WEAS INITIATED AT LUNCH TIME TODAY. NURSE INDICATED THAT PT COULD BE AT GOAL RATE BY END OF SHIFT TODAY. CM SPOKE WITH ADMISSIONS AT [facility] AND THEY INDICATED THAT AUTH WAS ONLY GOOD THROUGH TODAY. CM HAD INDICATED EARLY THAT PT WOULD LIKELY BE MEDICALLY STABLE TO DC OVER THE WEEKEND PER DR. BAILEY BUT THEY HADN'T SUBMITTED FOR AUTH OF THIS NOTE. THEY WON'T BE ABLE TO RESUBMIT FOR AUTH UNTIL SUNDAY. CM NOTIFIED DR. BAILEY, NURSE, SPOUSE, AND PT THAT PT WOULDN'T BE ABLE TO DISCHARGE TO [facility] UNTIL MAYBE SUNDAY OF NEXT WEEK. CM TO FOLLOW INDICATED WITH DC PLANNING.
[2019-12-19 16:00] VITALS: BP 150/69
[2019-12-19 20:20] VITALS: BP 151/66
[2019-12-20 00:20] VITALS: BP 151/66
--- NOTE | 2019-12-20 03:01 | NUR ---
PATIENT AOX3 MAKES NEEDS KNOWN. PATIENT TORELATED FEEDING TUBE AND WATER FLUSHES THIS SHIFT. PATIENT IS ON JEVITY 40ML/HR, NO RESIDULE THIS SHIFT. PATIENT TURNED Q [address]UTION [address] PATIENT IN BED ASLEEP AT THIS TIME BREATHING REGULAR AND UNLABOURED.
[2019-12-20 04:02] VITALS: BP 149/56
[2019-12-20 09:10] VITALS: BP 131/69
[2019-12-20 17:10] VITALS: BP 110/48
--- NOTE | 2019-12-20 20:04 | NUR ---
Assumed pt care this am, very lethargic would not open her eyes for the doctor and would not track. PEG tube running and patent (jevity 1.5 @ 50), PPN dc as per MD. both arms are +2 edma and bruised both are elevated. Q2 turns not all ;done since pt would refuse and wants to be left alone. at the bed side. FC in place drainig light yellolw urine. POC followed with no signs or verbalizations of distress noted.Endorsed to the night nurse.
[2019-12-20 20:14] VITALS: BP 102/50
--- NOTE | 2019-12-21 07:32 | NUR ---
Assumed pt care at 1900. Pt A/OX4,VSS. Denies pain on assessment. Took HS meds PO w/o any problems. Has a tube feeding with Jevity 1.5 infusing at 50ml/hr, no residual noted,no N/V reported. Pt incontinent of BMX1,[place] patent to DD with light yellow urine noted. Midline/PIV on LUE and patent. Edema persists on BUE,elevated on pillows. Pt resting quietly w/o any distress noted,oxygen in place at 2L/NC. Pt repositioned every 2 hrs w/o any problems. Fall precautions in place,calls approp.
[2019-12-21 08:30] VITALS: BP 126/71
--- NOTE | 2019-12-21 19:28 | NUR ---
Assumed care of pt. at 0700. Pt. was calm and cooperative. Pt. had several small bowel movements throughout the afternoon. Pt. did complain of not being on Losartan, physician notified, no orders given. Fall precautions in place.
[2019-12-21 19:29] VITALS: BP 126/61
--- NOTE | 2019-12-22 02:26 | NUR ---
ASSUMED PT CARE AROUND 1930. AXOX3. VSS. NO S/S ACUTE DISTRESS NOTED OR REPORTED AT THIS TIME. WILL CONT TO MONITOR FOR ANY CHANGES IN CONDITION.
[2019-12-22 08:00] VITALS: BP 126/65
--- NOTE | 2019-12-22 12:11 | NUR ---
Once pt stabilizes on continuous feeds, could transition to nocturnal of jevity 1.5 at 50ml/hr 7p-5a, then bolus 1 can at every meal time if pt consumes less than 50% by mouth.
[2019-12-22] MEDS ORDERED: ASPIR 8181 MG PO (13:54)
--- NOTE | 2019-12-22 14:35 | NUR ---
PT DISCHARGING TODAY TO [facility] FOR SKILLED STAY FAXED DC ORDERS/SUMMARY TO FACILITY SPOKE WITH KAREEM IN ADM SHE RECEIVED ORDERS AND ARRANGED TRANSPORT BY [facility] FOR 1530 TODAY. NOTIFIED PT'S (HIMA) OF DC AND TIME OF TRANSPORT HE IS GOING TO BRING CLOTHES FOR PRIOR TO DC. NOTIFIED UNIT AND CHART COPY PER US. RN TO CALL REPORT TO [phone].
--- NOTE | 2019-12-22 14:41 | NUR ---
ASSUMED PT CARE THIS AM.
[2019-12-22 15:49] VITALS: BP 124/55
== END 2019-12-22 16:30 | DRG 689 ==
LOC: ER 09:48 → 4S 12:43 → EROBS 12:43 → 4S 15:05 → 4W 12-03 18:38
PROVIDERS: Emergency Medicine; Hospitalist; Internal Medicine; Nurse Practitioner; ADMIT Internal Medicine; ATTEND Internal Medicine
PROC: 0DH63UZ Insertion of Feeding Device into Stomach, Percutaneous Approach (ICD-10-PCS; principal; 2019-12-18)
DX: N39.0 Urinary tract infection, site not specified (principal); J96.01 Acute respiratory failure with hypoxia; E43 Unspecified severe protein-calorie malnutrition; N17.0 Acute kidney failure with tubular necrosis; G92 Toxic encephalopathy; E16.2 Hypoglycemia, unspecified; R60.1 Generalized edema; F03.90 Unspecified dementia, unspecified severity, without behavioral disturbance, psychotic disturbance, mood disturbance, and anxiety; E86.0 Dehydration; E88.09 Other disorders of plasma-protein metabolism, not elsewhere classified; I10 Essential (primary) hypertension; E78.5 Hyperlipidemia, unspecified; R74.01 Elevation of levels of liver transaminase levels; G47.00 Insomnia, unspecified; K21.9 Gastro-esophageal reflux disease without esophagitis; D64.9 Anemia, unspecified; M54.2 Cervicalgia; R40.0 Somnolence; K80.20 Calculus of gallbladder without cholecystitis without obstruction; Z68.34 Body mass index [BMI] 34.0-34.9, adult; Z86.73 Personal history of transient ischemic attack (TIA), and cerebral infarction without residual deficits; Z79.899 Other long term (current) drug therapy; Z20.828 Contact with and (suspected) exposure to other viral communicable diseases
CPT/HCPCS: 10040; 10195; 27000; 62110; 62900; 70005